=== PATIENT | female | born 2000 | race African-American/Black ===

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

== ENCOUNTER 2020-08-24 00:30 | Emergency (ER) | payer OTHER ==
[~2020-08-24] VITALS: Ht 172 cm; Wt 92.0 kg
--- NOTE | 2020-08-24 00:45 | NUR ---
Dk mother is waiting in the car for patient- [phone]
--- NOTE | 2020-08-24 01:04 | NUR ---
Attempted to call mother and reassure her but no answer x 2.
--- NOTE | 2020-08-24 01:50 | ED Respiratory ---
General Chief Complaint: Cough/Cold/Flu Symptoms Stated Complaint: SOB Nursing Triage Note: Pt here with cough and feeling shob 2 nights ago. 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 Source: patient History of Present Illness Date Seen by Provider: Aug 24, 2020 Time Seen by Provider: 00:35 Initial Comments PT ARRIVES VIA POV FROM HOME MOM IS COMPLETELY HYSTERICAL ON ARRIVAL--RUNS INTO ER AND IS SCREAMING "MY BABY'S NOT BREATHING AND SHE'S GOT THE VIRUS" --MULTIPLE STAFF RAN OUT TO CAR, AND FOUND PT WITH NON-LABORED BREATHING AND NO COUGH, IN NO DISTRESS WHATSOEVER, AND PT AMBULATED INTO ER ON HER OWN WITHOUT DIFFICULTY WHATSOEVER. C/O COUGH AND SHORTNESS OF BREATH SINCE FRIDAY EVENING LOSS OF TASTE AND SMELL 20 MINUTES PRIOR TO ARRIVAL. SLIGHT SORE THROAT C/O HEADACHE TO TOP OF HEAD NO NAUSEA/VOMITING/DIARRHEA NO BODY ACHES NO FEVER BROTHER TESTED + FOR COVID-19 ON FRIDAY/FRIDAY--HE HAS BEEN "QUARANTINING AT [facility]" SINCE THEN, BUT HAD BEEN AT HOME WITH REST OF FAMILY UNTIL FRIDAY. OTHER FAMILY MEMBERS HAVE NOT BEEN QUARANTINING. 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 NO HISTORY OF RESPIRATORY PROBLEMS OR MAJOR MEDICAL PROBLEMS LMP 08/20/20. NORMAL. NO CONTROL PCP: [facility] Allergies and Home Medications Allergies Coded Allergies: acetaminophen (Verified Allergy, Unknown, 11/19/19) pamabrom (Verified Allergy, Unknown, 11/19/19) Patient Home Medication List Home Medication List Reviewed: Yes Review of Systems Review of Systems Constitutional: no symptoms reported; No chills, No diaphoresis, No dizziness, No fever EENTM: see HPI, throat pain, other (LOSS OF TASTE AND SMELL) Respiratory: see HPI, cough, short of breath Cardiovascular: no symptoms reported Gastrointestinal: no symptoms reported; No abdominal pain, No diarrhea, No nausea, No vomiting Genitourinary: no symptoms reported Musculoskeletal: no symptoms reported Skin: no symptoms reported Psychiatric/Neurological: Headache Hematologic/Lymphatic: No Symptoms Reported Immunological/Allergic: no symptoms reported Past Vwjpjea-Vgkcpa-Opbkkg Hx Past Med/Social Hx: Reviewed and Corrections made Patient Social History Alcohol Use: Denies Use Recreational Drug Use: No Smoking Status: Never a Smoker Recent Foreign Travel: No Contact w/Someone Who Travel: No Recent Infectious Disease Expo: Yes Recent Hopitalizations: No Immunizations Up To Date Tetanus Booster (TDap): Less than 5yrs PED Vaccines UTD: Yes Seasonal Allergies Seasonal Allergies: No Past Medical History Surgeries: No Respiratory: No Cardiac: No Neurological: No Reproductive Disorders: No Genitourinary: No Gastrointestinal: No Musculoskeletal: No Endocrine: No HEENT: No Cancer: No Psychosocial: No Integumentary: No Blood Disorders: No Physical Exam Vital Signs - First Documented 08/24/20 00:35 Temp 36.5 Pulse 64 Resp 18 B/P (MAP) 147/108 (121) Pulse Ox 100 O2 Delivery Room Air Capillary Refill : Less Than 3 Seconds Height: '" Weight: lbs. oz. kg; 31.00 BMI Method: General Appearance: WD/WN, no apparent distress, obese, other (RESPIRATIONS EVEN AND UNLABORED. 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 II-XII nml as tested, no motor/sensory deficits, alert, normal mood/affect, oriented x 3 Skin: normal color (PT IS DARK SKINNED), warm/dry; No rash Progress/Results/Core Measures Suspected Sepsis Recent Fever Within 48 Hours: No Infection Criteria Present: None New/Unexplained Altered Menta: No Sepsis Screen: No Definite Risk SIRS Temperature: Pulse: 64 Respiratory Rate: 18 Blood Pressure 147 /108 Mean: 121 Results/Orders Lab Results Laboratory Tests Test 08/24/20 00:44 Range/Units Coronavirus 2019 ([facility]A) Positive H Negative Micro Results Microbiology 08/24/20 Influenza Types A,B Antigen ([facility]IDER) - Final, Complete My Orders Orders - ORTIZ CLINE DO Influenza A And B Antigens (08/24/20 00:55) Chest 1 View, Ap/Pa Only (08/24/20 00:55) Covid 19 Inhouse Test (08/24/20 00:55) Vital Signs/I&O 08/24/20 08/24/20 00:35 02:25 Temp 36.5 Pulse 64 60 Resp 18 18 B/P (MAP) 147/108 (121) 140/97 Pulse Ox 100 99 O2 Delivery Room Air Room Air Capillary Refill : Less Than 3 Seconds Blood Pressure Mean: 121 Progress Note : Progress Note PLACED IN ISOLATION ROOM PPE WORN AT ALL TIMES COVID-19 TESTING PERFORMED. O2 SAT 100% ON ROOM AIR NO COUGH OR DYSPNEA AT ANY TIME DURING ER STAY Diagnostic Imaging Comments CXR--NO ACUTE PROCESS, PENDING RADIOLOGIST REVIEW Reviewed: Reviewed by Me Departure Impression Primary Impression: COVID-19 virus infection Disposition: 01 HOME, SELF-CARE Condition: Stable Departure-Patient Inst. Referrals: [facility] (PCP) Primary Care Physician ABELARDO NICOLE (Family) Primary Care Physician Patient Instructions: Coronavirus Disease 2019 (COVID-19) (DC), Preventing the Spread of an Infectious Disease Add. Discharge Instructions: QUARANTINE FOR ALL HOUSEHOLD MEMBERS AND CLOSE CONTACTS FOR 2 WEEKS, OR UNTIL CLEARED BY HEALTH DEPARTMENT TYLENOL 1 GRAM / MOTRIN 800 MG 4 TIMES A DAY FOR PAIN OR FEVER LOTS OF CLEAR LIQUIDS--WATER, BROTH, JELLO, GATORADE, CLEAR JUICES OVER THE COUNTER MEDICATIONS NEEDED FOR COUGH RETURN TO ER IF SYMPTOMS WORSEN All discharge instructions reviewed with patient and/or family. Voiced understanding. Work/School Note: Family Work Note, School/Childcare Release Date Seen in the Emergency Department: Aug 24, 2020 Time Dismissed from Emergency Department: 02:04 Return to School: Sep 07, 2020 ORTIZ CLINE DO Aug 24, 2020 01:50
[2020-08-24 02:25] VITALS: BP 140/97
--- NOTE | 2020-08-24 06:32 | Diagnostic Imaging Report ---
Indication: Cough and congestion Comparison is made study of 11/19/2019. FINDINGS: Heart size and pulmonary vascularity are within normal limits, and the lungs are clear, bilaterally. IMPRESSION: Unremarkable chest. Dictated by: Dictated on workstation # [id number]
== END 2020-08-24 02:25 | disposition home or self-care (01) ==
LOC: EDUNIT# 00:30 → ER 00:32
DX: U07.1 COVID-19 (principal); E66.9 Obesity, unspecified; Z88.6 Allergy status to analgesic agent; Z88.8 Allergy status to other drugs, medicaments and biological substances
CPT/HCPCS: 71045; 87804; 99283; U0002; 87635